=== PATIENT | male | born 1975 | race African-American/Black ===

== ENCOUNTER 2017-02-24 16:55 | Emergency (ER) | payer OTHER ==
[2017-02-24] MEDS ORDERED: IBUPROFEN 600 MG TABLET (FP) PO ONE ×2 (17:20→17:59)
--- NOTE | 2017-02-24 17:27 | PDOC ---
History of Present Illness - General History Source: Patient Exam Limitations: No Limitations <Marimar Montano - Last Filed: 02/24/17 17:23> - General History Source: Patient Exam Limitations: No Limitations - History of Present Illness Initial Comments: 02/24/17 18:00 The patient is a 41-year-old male, with no past medical history, who presents to the ED complaining of 2 months of right thumb pain. Pt reports that he slammed his hand with a door while at work and he is now experiencing a locking sensation when he flexes his thumb at the IP joint. He denies any recent trauma to the hand and denies any wrist pain. Pt reports that he tried to order a wrist splint but was unable to find one that immobilized his thumb. He denies taking any medication for pain. He reports to the ED today because the pain has progressively worsened and the clicking is occurring more frequently. He has not followed up with a hand specialist yet. The patient denies having any other symptoms. <Zoila Rivero - Last Filed: 02/24/17 18:10> - General Chief Complaint: Pain Stated Complaint: right thumb pain s/p injury at work x 2 months ago Time Seen by Provider: 02/24/17 17:14 Past History - Past Medical History COPD: No Other medical history: pt denies - Suicide/Smoking/Psychosocial Hx Smoking History: Never smoked Have you smoked in the past 12 months: No Number of Cigarettes Smoked Daily: 4 Hx Alcohol Use: No Drug/Substance Use Hx: Yes Substance Use Type: None <Marimar Montano - Last Filed: 02/24/17 17:23> <Zoila Rivero - Last Filed: 02/24/17 18:10> - Past Medical History Allergies/Adverse Reactions: Allergies Allergy/AdvReac Type Severity Reaction Status Date / Time Iodine and Iodide Containing Allergy Verified 02/24/17 17:13 Produc No Known Drug Allergies Allergy Verified 02/24/17 17:13 shellfish derived Allergy Verified 02/24/17 17:13 Home Medications: Ambulatory Orders Ibuprofen [Motrin -] 600 mg PO TID #90 tablet 02/24/17 Review of Systems - Review of Systems Able to Perform ROS?: Yes Comments:: 02/24/17 18:01 GENERAL/CONSTITUTIONAL: No fever or chills. No weakness. HEAD, EYES, EARS, NOSE AND THROAT: No change in vision. No ear pain or discharge. No sore throat. CARDIOVASCULAR: No chest pain or shortness of breath. RESPIRATORY: No cough, wheezing, or hemoptysis. GASTROINTESTINAL: No nausea, vomiting, diarrhea or constipation. GENITOURINARY: No dysuria, frequency, or change in urination. MUSCULOSKELETAL: (+)pain at ip joint of right hand with flexion. No neck or back pain. SKIN: No rash NEUROLOGIC: No headache, vertigo, loss of consciousness, or change in strength/ sensation. ENDOCRINE: No increased thirst. No abnormal weight change. HEMATOLOGIC/LYMPHATIC: No anemia, easy bleeding, or history of blood clots. ALLERGIC/IMMUNOLOGIC: No hives or skin allergy. <Zoila Rivero - Last Filed: 02/24/17 18:10> *Physical Exam - Physical Exam Comments: 02/24/17 18:07 GENERAL: Awake, alert, and fully oriented, in no acute distress HEAD: No signs of trauma EYES: PERRLA, EOMI, sclera anicteric, conjunctiva clear ENT: Auricles normal inspection, nares patent, oropharynx clear without exudates. Moist mucosa. NECK: Normal ROM, supple, no lymphadenopathy, JVD, or masses LUNGS: Breath sounds equal, clear to auscultation bilaterally. No wheezes, and no crackles HEART: Regular rate and rhythm, normal S1 and S2, no murmurs, rubs or gallops ABDOMEN: Soft, nontender, normoactive bowel sounds. No guarding, no rebound. No masses EXTREMITIES: (+)Right thumb: IP joint with sticking on flexion ,no swelling or erythema, full range of motion of wrist. No clubbing or cyanosis. No cords. NEUROLOGICAL: SKIN: Warm, Dry, normal turgor, no rashes or lesions noted <Zoila Rivero - Last Filed: 02/24/17 18:10> ED Treatment Course - RADIOLOGY Radiology Studies Ordered: Category Date Time Status HAND- RIGHT [RAD] Stat Radiology 02/24/17 17:20 Ordered <Marimar Montano - Last Filed: 02/24/17 17:23> Medical Decision Making - Medical Decision Making 02/24/17 17:23 41-year-old male with no past medical history here today complaining of 1 month of right thumb pain. Patient states he had a prior injury in which he slammed his hand in the door now feels a catching sensation when he tries to flex his thumb at the IP joint. No new trauma no fevers or chills no other current complaints no wrist pain. Had ordered a wrist splint but did not involve any immobilization of the thumb has not taken anything for pain here today because he feels that the pain the clicking is gotten more frequent and more severe. Has not followed up with a hand specialist as of yet On exam his right hand is noted for right thumb IP joint with sticking on flexion no swelling or erythema wrists is full range of motion. Patient has trigger finger of the right thumb at the IP joint we'll recommend hand follow-up with Dr. Allan Trimble. Also recommended patient by a thumb immobilization splint online can take Motrin 600 mg every 8 hours as needed for pain <Marimar Montano - Last Filed: 02/24/17 17:23> *DC/Admit/Observation/Transfer - Discharge Dispostion Admit: No <Marimar Montano - Last Filed: 02/24/17 17:23> - Attestations Scribe Attestion: 02/24/17 18:10 Documentation prepared by Zoila Rivero, acting as medical claims examiner for Marimar Montano MD. <Zoila Rivero - Last Filed: 02/24/17 18:10> Diagnosis at time of Disposition: Trigger finger - Discharge Dispostion Disposition: HOME Condition at time of disposition: Improved - Prescriptions Prescriptions: Ibuprofen [Motrin -] 600 mg PO TID #90 tablet - Referrals Referrals: Chan Trimble MD [Staff Physician] - - Patient Instructions Printed Discharge Instructions: Trigger Finger Additional Instructions: You need to follow up with a hand specialist. He can seek your own specialist, or he can follow up with Dr. Trimble or Dr. Lemus. See referral information for follow-up. He can order an online thumb immobilization splint or a thumb spica splint. There available medical supply stores or online [employer]. You can take Motrin 600 mg every 8 hours as needed for pain return for any problems or concerns
== END 2017-02-24 18:03 | disposition home or self-care (01) ==
LOC: FER 16:55
DX: M65.311 Trigger thumb, right thumb (principal); Z72.0 Tobacco use
CPT/HCPCS: 73130-TC-RT; 99281-25

== ENCOUNTER 2018-02-23 23:14 | Emergency (ER) | payer SELFPAY ==
[2018-02-23 23:27] VITALS: BMI 31.9
--- NOTE | 2018-02-23 23:30 | PDOC ---
History of Present Illness - General Chief Complaint: Pain, Acute Stated Complaint: STOMACH PAIN,VOMITTING, CHILLS Time Seen by Provider: 02/23/18 23:29 - History of Present Illness Initial Comments: 02/24/18 01:55 The patient is a 42 year old male with no significant PMH who presents for evaluation of epigastric abdominal pain. The patient reports acute onset of burning sharp epigastric abdominal pain earlier this evening with associated nausea and non-bloody, non-bilious vomiting prompting his presentation to the ED for further evaluation. He reports that he has had similar symptoms in the past. He notes that he is a daily marijuana smoker as well. He otherwise denies fevers, chills, SOB, chest pain, or changes with urination or bowel movements. He denies a history of heavy alcohol use as well. Past History - Past Medical History Allergies/Adverse Reactions: Allergies Allergy/AdvReac Type Severity Reaction Status Date / Time Iodine and Iodide Containing Allergy Verified 02/23/18 23:27 Produc No Known Drug Allergies Allergy Verified 02/23/18 23:27 shellfish derived Allergy Verified 02/23/18 23:27 Home Medications: Ambulatory Orders Ibuprofen [Motrin -] 600 mg PO TID #90 tablet 02/24/17 Famotidine [Pepcid -] 20 mg PO DAILY #12 tablet 02/24/18 Ondansetron [Zofran Odt -] 4 mg SL TID #21 od.tablet 02/24/18 COPD: No - Suicide/Smoking/Psychosocial Hx Smoking History: Never smoked Have you smoked in the past 12 months: No Number of Cigarettes Smoked Daily: 4 Information on smoking cessation initiated: No Hx Alcohol Use: No Drug/Substance Use Hx: No Substance Use Type: None Review of Systems - Review of Systems Comments:: 02/24/18 01:57 Constitutional: No fevers, chills, fatigue, malaise HEENT: No Rhinorrhea, nasal congestion, visual changes Cardiovascular: No chest pain, syncope, palpitations, lightheadedness Respiratory: No Cough, SOB, Hemoptysis, Gastrointestinal: Epigastric Abdominal pain, Nausea, Vomiting. No Constipation , Diarrhea, Melena Genitourinary: No Dysuria, Frequency, Urgency, Hesitancy, Hematuria, Flank pain Musculoskeletal: No Myalgia, arthralgia Skin: No rashes, itching, bruising, pallor Neurologic: No Headache, Dizziness, Numbness, Weakness, or Tingling Psychiatric: No Hallucinations. No SI or HI *Physical Exam - Vital Signs Last Vital Signs Temp Pulse Resp BP Pulse Ox 97.8 F 110 H 16 122/75 98 02/23/18 23:24 02/23/18 23:24 02/23/18 23:24 02/23/18 23:24 02/23/18 23:24 - Physical Exam Comments: 02/24/18 01:58 General Appearance: Nourished. No Apparent Distress HEENT: No Pharyngeal Erythema, Tonsillar Exudate, Tonsillar Erythema Neck: No Cervical Lymphadenopathy Respiratory/Chest: Lungs Clear, Normal Breath Sounds. No Crackles, Rales, Rhonchi, Wheezing Cardiovascular: Regular Rhythm, Regular Rate. No Murmur, Gallops, Rubs Gastrointestinal/Abdominal: Normal Bowel Sounds, Soft. Epigastric tenderness to palpation on exam. No RUQ tenderness to palpation. Negative Zmaan's sign. No Guarding, Rebound, Musculoskeletal: No CVA Tenderness Extremity: Normal Capillary Refill Integumentary: Normal Color, Dry, Warm Neurologic: Fully Oriented, Alert, Normal Mood/Affect, Normal Response, Moderate Sedation - Procedure Monitoring Vital Signs: Procedure Monitoring Vital Signs Temperature 97.8 F 02/23/18 23:24 Pulse Rate 110 H 02/23/18 23:24 Respiratory Rate 16 02/23/18 23:24 Blood Pressure 122/75 02/23/18 23:24 O2 Sat by Pulse Oximetry (%) 98 02/23/18 23:24 ED Treatment Course - LABORATORY CBC & Chemistry Diagram: 02/24/18 00:50 02/24/18 00:50 Medical Decision Making - Medical Decision Making 02/24/18 01:59 The patient is a 42 year old male with no significant PMH who presents for evaluation of epigastric abdominal pain. Differential includes but is not limited to: ACS, Gastritis, Pancreatitis, Infectious, Metabolic Derangement. Given the patient's history and physical exam, we will obtain a cbc, cmp, troponin, lipase, ekg to evaluate further. We will treat with iv fluids, pepcid , zofran, maalox, viscous lidocaine and continue to monitor and reassess while here in the ED. 02/24/18 07:03 CBC, cmp, troponin, lipase are unremarkable. CT abdomen/pelvis is unremarkable as preliminarily read by our operations representative radiologist. The patient began to have a fever. We will treat with iv fluids and tylenol and obtain a ua and chest plain film. Patient signed out to the day team pending UA, chest plain film and reassessment. *DC/Admit/Observation/Transfer Diagnosis at time of Disposition: Abdominal pain, Cyclical vomiting syndrome Nausea and vomiting Qualifiers: Vomiting type: unspecified Vomiting Intractability: unspecified Qualified Code( s): R11.2 - Nausea with vomiting, unspecified - Discharge Dispostion Disposition: HOME Condition at time of disposition: Stable - Prescriptions Prescriptions: Famotidine [Pepcid -] 20 mg PO DAILY #12 tablet Ondansetron [Zofran Odt -] 4 mg SL TID #21 od.tablet - Referrals Referrals: Kacie Erickson MD [Primary Care Provider] - Medhat Rush MD [Staff Physician] - - Patient Instructions Printed Discharge Instructions: DI for Vomiting -- Adult Additional Instructions: Please return to the ER if you experience concerning or worsening symptoms including worsening difficulty breathing, weakness, or chest pain, fevers, abdominal pain. Your lab results were normal here in the ER. Your CT scan was normal here in the ER. We have sent a prescription to your pharmacy for anti nausea medication. Please call to schedule a follow up appointment with our GI specialist within 2-3 days to discuss your ER visit and further management of your symptoms. Your symptoms may be related to daily infrequent use of marijuana. Stoping marijuana use is the most effective treatment for this condition. - Post Discharge Activity
[2018-02-23] MEDS ORDERED: ONDANSETRON 4 MG/2 ML VIAL IVPUSH ONE (23:42)
[2018-02-23] MEDS ORDERED: SODIUM CHLORIDE 1,000 ML IV STA (23:42)
[2018-02-23] MEDS ORDERED: MAG HYDROX/AL HYDROX/SIMETH 30 ML UNIT-DOSE CUP PO ONE (23:42)
[2018-02-23] MEDS ORDERED: FAMOTIDINE 20 MG/50 ML IVPB 20 MG/50 ML MG IVPB ONE (23:42)
[2018-02-23] MEDS ORDERED: LIDOCAINE VISCOUS 2% ORAL/TOP 20 ML UNIT-DOSE CUP MM ONE (23:42)
[2018-02-24] MEDS ORDERED: MAG HYDROX/AL HYDROX/SIMETH 30 ML UNIT-DOSE CUP ONE (00:20)
[2018-02-24] MEDS ORDERED: LIDOCAINE VISCOUS 2% ORAL/TOP 20 ML UNIT-DOSE CUP ONE (00:20)
[2018-02-24] MEDS ORDERED: ONDANSETRON 4 MG/2 ML VIAL ONE (00:20)
[2018-02-24] MEDS ORDERED: FAMOTIDINE 20 MG/50 ML IVPB 20 MG/50 ML MG IVPB ONE (00:21)
[2018-02-24 01:09] LABS: BASO % 0.6 % (0-2.0); HEMATOCRIT 42.8 % (35.4-49); HEMOGLOBIN 15.1 GM/dL (11.7-16.9); LYMPH % 9.4 % (8-40); MCH 32.8 pg (25.7-33.7); MCHC 35.2 g/dl (32.0-35.9); MEAN CELL VOLUME 93.2 fl (80-96); MEAN PLT VOLUME 8.5 fl (7.5-11.1); MONO % 4.3 % (3.8-10.2); NEUT % 85.7 % (42.8-82.8); PLATELET COUNT 230 K/MM3 (134-434); RBC 4.59 M/mm3 (4.00-5.60); RDW 13.9 % (11.9-15.9); WHITE BLOOD COUNT 12.6 K/mm3 (4.0-10.0)
--- NOTE | 2018-02-24 02:10 | PDOC ---
Attending Attestation - Resident Resident Name: KaleighBacilio - ED Attending Attestation I have performed the following: I have examined & evaluated the patient, The case was reviewed & discussed with the resident, I agree w/resident's findings & plan, Exceptions are as noted - Physicial Exam PE: 02/24/18 02:08 awake alert lungs clear bilaterally heart rrr no mrg . abd soft mild llq ttp. no rebound no guarding. skin warm and dry.nuero alert oriented x 3. - Medical Decision Making 02/24/18 02:08 42 yo male with h/o daily weed use, here with intractable n/v/d. 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 vomiting started today. no f/c no sick contacts. no travel. on exam mild llq ttp. differential diverticulitis, colitis, hyperemesis of cannabis. electrolyte abnoramlity,viral gastritis. plan ct a/p , iv hydration antiemetics. reassess. <Marimar Montano - Last Filed: 02/24/18 02:07> - HPI HPI: 02/24/18 02:21 The patient is 42 year old male with a past medical history of daily weed use and borderline DM presenting to the ER with nausea and vomiting today. Patients reports this has happened to him in the past. Patient has been told to follow up with GI but has not done so yet. Patient denies any sick contact or recent travel. Patient denies chest pain, sob, urinary complaints, or changes in bowel movements. <Shannon Graff - Last Filed: 02/24/18 02:26>
[2018-02-24 02:22] LABS: ALBUMIN 4.6 g/dl (3.4-5.0); ALK PHOS 75 U/L (45-117); ANION GAP 7 MMOL/L (8-16); BILIRUBIN,TOTAL 0.6 mg/dL (0.2-1); BLOOD UREA NITROGEN 19 mg/dL (7-18); CALCIUM 9.8 mg/dL (8.5-10.1); CHLORIDE 106 mmol/L (98-107); CO2 25 mmol/L (21-32); CREATININE 1.3 mg/dL (0.55-1.3); GLUCOSE,RANDOM 117 mg/dL (74-106); LIPASE 74 U/L (73-393); POTASSIUM 4.9 mmol/L (3.5-5.1); SGOT/AST 45 U/L (15-37); SGPT/ALT 29 U/L (13-61); SODIUM 138 mmol/L (136-145); TOT PROT 8.8 g/dl (6.4-8.2)
[2018-02-24] MEDS ORDERED: METOCLOPRAMIDE HCL INJECTION 10 MG/2 ML VIAL IVPUSH ONE (03:39)
[2018-02-24] MEDS ORDERED: METOCLOPRAMIDE HCL INJECTION 10 MG/2 ML VIAL ONE (03:52)
[2018-02-24] MEDS ORDERED: LORazepam 2 MG/ML SDV VIAL ONE (03:53)
[2018-02-24] MEDS ORDERED: SODIUM CHLORIDE 1,000 ML IV STA (06:23)
[2018-02-24] MEDS ORDERED: ACETAMINOPHEN 1000 MG/100 ML VIAL (NON FORMULARY) IVPB ONE (06:23)
[2018-02-24] MEDS ORDERED: ACETAMINOPHEN INJECTION 100 ML IVPB ONE (06:31)
[2018-02-24 07:25] LABS: URINE APPEARANCE CLEAR; URINE BILIRUBIN NEGATIVE (<2.0 mg/dL); URINE COLOR YELLOW; URINE GLUCOSE (UA) NEGATIVE (NEGATIVE); URINE KETONE 1+ (NEGATIVE); URINE LEUK ESTERASE NEGATIVE (NEGATIVE); URINE NITRITE NEGATIVE (NEGATIVE); URINE PROTEIN NEGATIVE (NEGATIVE); URINE UROBILINOGEN NEGATIVE mg/dL (0.2-1.0)
[2018-02-24 10:26] VITALS: BP 105/70; PULSE 80; TEMP 99.7
--- NOTE | 2018-02-24 10:51 | PDOC ---
*Physical Exam - Vital Signs Last Vital Signs Temp Pulse Resp BP Pulse Ox 99.7 F H 80 16 105/70 99 02/24/18 10:25 02/24/18 10:25 02/24/18 10:25 02/24/18 10:25 02/24/18 10:25 - Physical Exam Comments: 02/24/18 10:46 Patient endorsed to me by Dr. Montano. Patient is a 42-year-old male who presented with diffuse abdominal pain, nausea and vomiting associated with daily use of marijuana. Patient was initially evaluated for abdominal pain with a CT of abdomen and pelvis which showed no evidence of acute intra-abdominal pathology. Shortly prior to discharge, patient developed low-grade fever and transient hypotension. Patient was given antipyretics and IV fluids. Chest x- ray reveals no evidence of infiltrate or effusion. Urinalysis within normal limit. There is no petechial rash. On reassessment, there are no meningeal signs , repeat abdominal exam reveals no focal tenderness. Patient is able to ambulate without difficulty. Patient tolerates by mouth without dysphasia or vomiting. I do not suspect acute appendicitis or diverticulitis at this time. Will discharge with abdominal pain, fever cannabinoid hyperemesis syndrome with outpatient follow-up. ED Treatment Course - LABORATORY CBC & Chemistry Diagram: 02/24/18 00:50 02/24/18 00:50 - ADDITIONAL ORDERS Additional order review: Laboratory Results 02/24/18 02/24/18 07:13 00:50 Sodium 138 Potassium 4.9 Chloride 106 Carbon Dioxide 25 Anion Gap 7 L BUN 19 H Creatinine 1.3 Creat Clearance w eGFR 59.97 Random Glucose 117 H Calcium 9.8 Total Bilirubin 0.6 AST 45 H ALT 29 Alkaline Phosphatase 75 Creatine Kinase 491 H Creatine Kinase Index 0.2 CK-MB (CK-2) < 1.0 Troponin I < 0.02 Total Protein 8.8 H Albumin 4.6 Lipase 74 Urine Color Yellow Urine Appearance Clear Urine pH 6.0 Ur Specific [place] 1.029 Urine Protein Negative Urine Glucose (UA) Negative Urine Ketones 1+ H Urine Blood Negative Urine Nitrite Negative Urine Bilirubin Negative Urine Urobilinogen Negative Ur Leukocyte Esterase Negative 02/24/18 00:50 RBC 4.59 MCV 93.2 MCHC 35.2 RDW 13.9 MPV 8.5 Neutrophils % 85.7 H D Lymphocytes % 9.4 D Monocytes % 4.3 Eosinophils % 0.0 D Basophils % 0.6 - Medications Given in the ED: ED Medications Discontinued Medications Generic Name Dose Route Start Last Admin Trade Name Poppy PRN Reason Stop Dose Admin Acetaminophen 1,000 mg 02/24/18 06:23 02/24/18 06:45 Ofirmev Injection - IVPB 02/24/18 06:24 1,000 mg ONCE ONE Administration Al Hydroxide/Mg Hydroxide 30 ml 02/23/18 23:42 02/24/18 00:24 Mylanta Oral Suspension - PO 02/23/18 23:43 30 ml ONCE ONE Administration Famotidine/Sodium Chloride 20 mg in 50 mls @ 100 mls/hr 02/23/18 23:42 00:24 Pepcid 20 Mg Premixed Ivpb - IVPB 02/24/18 00:11 100 mls/hr ONCE ONE Administration Sodium Chloride 1,000 mls @ 1,000 mls/hr 02/23/18 23:42 02/24/18 00:24 Normal Saline - IV 02/24/18 00:41 1,000 mls/hr ASDIR STA Administration Sodium Chloride 1,000 mls @ 1,000 mls/hr 02/24/18 06:23 02/24/18 06:45 Normal Saline - IV 02/24/18 07:22 1,000 mls/hr ASDIR STA Administration Lidocaine HCl 20 ml 02/23/18 23:42 02/24/18 00:24 Xylocaine 2% Viscous Oral - MM 02/23/18 23:43 20 ml ONCE ONE Administration Lorazepam 1 mg 02/24/18 03:40 02/24/18 04:01 Ativan Injection - IVPUSH 02/24/18 03:41 1 mg ONCE ONE Administration Metoclopramide HCl 10 mg 02/24/18 03:39 02/24/18 04:01 Reglan Injection - IVPUSH 02/24/18 03:40 10 mg ONCE ONE Administration Ondansetron HCl 4 mg 02/23/18 23:42 02/24/18 00:24 Zofran Injection IVPUSH 02/23/18 23:43 4 mg ONCE ONE Administration *DC/Admit/Observation/Transfer Diagnosis at time of Disposition: Nausea and vomiting Qualifiers: Vomiting type: unspecified Vomiting Intractability: unspecified Qualified Code( s): R11.2 - Nausea with vomiting, unspecified Abdominal pain Qualifiers: Abdominal location: unspecified location Qualified Code(s): R10.9 - Unspecified abdominal pain Cyclical vomiting syndrome Qualifiers: Vomiting Intractability: non-intractable Nausea presence: with nausea Qualified Code(s): G43.A0 - Cyclical vomiting, not intractable - Discharge Dispostion Disposition: HOME Condition at time of disposition: Stable - Prescriptions Prescriptions: Famotidine [Pepcid -] 20 mg PO DAILY #12 tablet Ondansetron [Zofran Odt -] 4 mg SL TID #21 od.tablet - Referrals Referrals: Medhat Rush MD [Staff Physician] - Kacie Erickson MD [Primary Care Provider] - - Patient Instructions Printed Discharge Instructions: DI for Vomiting -- Adult Additional Instructions: Please return to the ER if you experience concerning or worsening symptoms including worsening difficulty breathing, weakness, or chest pain, fevers, abdominal pain. Your lab results were normal here in the ER. Your CT scan was normal here in the ER. We have sent a prescription to your pharmacy for anti nausea medication. Please call to schedule a follow up appointment with our GI specialist within 2-3 days to discuss your ER visit and further management of your symptoms. Your symptoms may be related to daily infrequent use of marijuana. Stoping marijuana use is the most effective treatment for this condition. - Post Discharge Activity
--- NOTE | 2018-02-24 11:45 | EKG ---
Test Reason : Blood Pressure : / mmHG Vent. Rate : 069 BPM Atrial Rate : 069 BPM P-R Int : 160 ms QRS Dur : 076 ms QT Int : 390 ms P-R-T Axes : 055 067 040 degrees QTc Int : 417 ms NORMAL SINUS RHYTHM NORMAL ECG NO PREVIOUS ECGS AVAILABLE Confirmed by ARELIS NICKERSON, LEIGHTON ([id number]) on 02/24/2018 11:44:53 AM Referred By: Confirmed By:LEIGHTON INFANTE MD
== END 2018-02-24 11:17 | disposition home or self-care (01) ==
LOC: JER 23:14
PROC: 3E033NZ Introduction of Analgesics, Hypnotics, Sedatives into Peripheral Vein, Percutaneous Approach (ICD-10-PCS; principal; 2018-02-23)
PROC: 3E033GC Introduction of Other Therapeutic Substance into Peripheral Vein, Percutaneous Approach (ICD-10-PCS; 2018-02-23)
PROC: 3E0337Z Introduction of Electrolytic and Water Balance Substance into Peripheral Vein, Percutaneous Approach (ICD-10-PCS; 2018-02-23)
DX: R05 Cough (principal)
CPT/HCPCS: 36415; 71045-TC-FY; 74176-TC; 80053; 81003; 82550; 82553; 83690; 84484; 85025; 93005; 93010; 99282-25; J0131; J7030

== ENCOUNTER 2018-10-26 11:02 | Emergency (ER) | payer OTHER ==
[2018-10-26 11:07] VITALS: TEMP 98.6; BMI 25.0
[2018-10-26] MEDS ORDERED: METOCLOPRAMIDE HCL INJECTION 10 MG/2 ML VIAL IVPUSH ONE (11:11)
[2018-10-26] MEDS ORDERED: SODIUM CHLORIDE 1,000 ML IV STA (11:11)
[2018-10-26] MEDS ORDERED: FAMOTIDINE 20 MG/50 ML IVPB 20 MG/50 ML MG IVPB ONE ×2 (11:12→11:15)
--- NOTE | 2018-10-26 11:13 | PDOC ---
History of Present Illness - General Chief Complaint: Pain, Acute Stated Complaint: abd pain Time Seen by Provider: 10/26/18 11:06 - History of Present Illness Initial Comments: 10/26/18 11:21 43M with multiple ED visits for vomiting and abdominal pain presents to the ED with vomiting and LLQ abdominal pain since waking up around 9am this morning. Spend the morning vomiting but no blood in the vomitus, no diarrhea. Says that IV medicine usually worked for him on previous visits. Admits to daily marijuana use. Did not use more than usual last night. Denies fever, chills, rashes, sob, chest pain, diarrhea or risky food ingestion. Past History - Past Medical History Allergies/Adverse Reactions: Allergies Allergy/AdvReac Type Severity Reaction Status Date / Time Iodine and Iodide Containing Allergy Verified 10/26/18 11:03 Produc shellfish derived Allergy Verified 10/26/18 11:03 Home Medications: Ambulatory Orders Hyoscyamine Odt [Levsin Odt -] 0.125 mg PO DAILY PRN #7 tab.rapdis 10/26/18 COPD: No - Immunization History Immunization Up to Date: Yes - Suicide/Smoking/Psychosocial Hx Smoking History: Never smoked Have you smoked in the past 12 months: No Number of Cigarettes Smoked Daily: 4 Hx Alcohol Use: Yes (ocasional) Drug/Substance Use Hx: Yes (daily mairjuana) Substance Use Type: None Abd/GI Specific PMHX - Complaint Specific PMHX Colitis: No Diverticulitis: No Gall Bladder Disease: No GERD: No Hepatitis: No Irritable Bowel Synd (IBS): No Pancreatitis: No GI Ulcer Disease: No Review of Systems - Review of Systems Able to Perform ROS?: Yes Is the patient limited Ivorian proficient: No Constitutional: No: Symptoms Reported HEENTM: No: Symptoms Reported Respiratory: No: Symptoms reported Cardiac (ROS): No: Symptoms Reported ABD/GI: Yes: See HPI : No: Symptoms Reported Musculoskeletal: No: Symptoms Reported Integumentary: No: Symptoms Reported Neurological: No: Symptoms reported All Other Systems: Reviewed and Negative *Physical Exam - Vital Signs Last Vital Signs Temp Pulse Resp BP Pulse Ox 98.6 F 75 18 143/85 100 10/26/18 11:02 10/26/18 11:02 10/26/18 11:02 10/26/18 11:02 10/26/18 11:02 - Physical Exam General Appearance: Yes: Nourished, Appropriately Dressed, Moderate Distress HEENT: positive: EOMI, LUIS CARLOS, Normal ENT Inspection Respiratory/Chest: positive: Lungs Clear, Normal Breath Sounds. negative: Chest Tender, Respiratory Distress Cardiovascular: positive: Regular Rhythm, Regular Rate, S1, S2 Gastrointestinal/Abdominal: positive: Normal Bowel Sounds, Flat, Soft. negative : Tender Musculoskeletal: positive: Normal Inspection. negative: CVA Tenderness Extremity: positive: Normal Capillary Refill, Normal Inspection, Normal Range of Motion Integumentary: positive: Normal Color, Dry, Warm Neurologic: positive: Fully Oriented, Alert, Normal Mood/Affect (difficult to stit still due to pain) ED Treatment Course - LABORATORY CBC & Chemistry Diagram: 10/26/18 11:35 10/26/18 11:35 Medical Decision Making - Medical Decision Making 10/26/18 11:30 43M with h/o vomiting episodes presents with usual episode of pain and intractable vomiting. Past workups and imaging never showed any acute processes, never any evidence of gastritis/colitis or hernia. We will still obtain basic labs and lipase to rule out pancreatitis, cholecystitis. Low suspicion for appendicitis due to absence of tenderness but will see if wbc is elevated. Treating with reglan, pepcid and IV NS. 10/26/18 12:14 Patient still vomiting after 1h, giving addition Zofran and IV tylenol 10/26/18 12:47 Will obtain EKG to make sure there's no QT prolongation and administer Haldol 2.5mg 10/26/18 13:27 Haldol 5mg IM administered due to IV no useable at this time. Patient feels some relief in nausea but still complaiing of pain in the abdomen. Giving trial of hyoscyamine for spasm relief. 10/26/18 13:49 Lipase WNL. 10/26/18 14:50 Patient's pain mostly resolved, no more nausea. Ok to DC with follow up. *DC/Admit/Observation/Transfer Diagnosis at time of Disposition: Nausea and vomiting Qualifiers: Vomiting type: unspecified Vomiting Intractability: non-intractable Qualified Code(s): R11.2 - Nausea with vomiting, unspecified - Discharge Dispostion Disposition: HOME Condition at time of disposition: Stable Decision to Admit order: No - Referrals - Patient Instructions - Post Discharge Activity
[2018-10-26] MEDS ORDERED: METOCLOPRAMIDE HCL INJECTION 10 MG/2 ML VIAL ONE (11:15)
--- NOTE | 2018-10-26 12:00 | PDOC ---
Attending Attestation - Resident Resident Name: Rick Martines - ED Attending Attestation I have performed the following: I have examined & evaluated the patient, The case was reviewed & discussed with the resident, I agree w/resident's findings & plan - HPI HPI: 10/26/18 11:56 43-year-old male with no significant past medical history other than chronic intermittent vomiting syndrome, seemingly attributed to daily marijuana use in the past but without official GI evaluation, presents now with 1-2 days of worsening epigastric pain/reflux/vomiting. Similar to past episodes, occurs in the setting of daily marijuana use, denies any excessive alcohol or NSAID or opiate use. No melena, no fevers or chills, presents for evaluation. Distant surgical history of umbilical hernia repair as an infant, no history of obstruction. CAT scans in the past have been normal. - Physicial Exam PE: 10/26/18 11:58 Vital signs normal, afebrile No jaundice or pallor Actively retching with clear/green fluid Heart is regular, lungs are clear Abdomen is soft/nondistended. Epigastric discomfort to palpation without guarding or rebound. No rash, neurovascularly intact distally - Medical Decision Making 10/26/18 11:58 43-year-old male with history of daily marijuana use presents with intractable vomiting and epigastric discomfort, no peritoneal findings on exam and hemodynamically stable. 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 Presentation not consistent with obstruction despite his distant surgical history. Check labs for electrolytes and lipase IV fluid rehydration, antacid, antiemetic Reassess 10/26/18 12:53 cbc/chem wnl, lipase pending received ivf, pepcid, reglan, zofran, tylenol with only some relief. accidentally pulled out his IVs, still retching. clinical trials suggestive of benefit with haldol for cannabinoid induced gastroparesis. EKG performed and qtc wnl, will trial haldol and reassess. 10/26/18 14:01 lipase normal. received anti-spasmodic, will reassess. if sxs persist, will likely need admission. 10/26/18 14:44 markedly improved after Levsin odt, resolved retching/pain and now tolerating crackers/water. abdominal exam benign, resting comfortably. agrees with d/c plan. will f/u with GI. counseled regarding excessive marijuana use, understands return criteria. *DC/Admit/Observation/Transfer Diagnosis at time of Disposition: Nausea and vomiting Qualifiers: Vomiting type: unspecified Vomiting Intractability: non-intractable Qualified Code(s): R11.2 - Nausea with vomiting, unspecified - Discharge Dispostion Disposition: HOME Condition at time of disposition: Improved - Prescriptions Prescriptions: Hyoscyamine Odt [Levsin Odt -] 0.125 mg PO DAILY PRN #7 tab.rapdis PRN Reason: Nausea And/Or Vomiting - Referrals Referrals: Vikas Uriostegui DO [Staff Physician] - - Patient Instructions Printed Discharge Instructions: DI for Gastroparesis Additional Instructions: Activity as tolerated. Advance diet as tolerated, avoiding dairy, spicy or fatty food, caffeine and alcohol. Stay hydrated. Blood tests and an EKG today showed no acute abnormalities. The vomiting is likely due to stomach dysmotility, possibly prompted by marijuana use. Take Levsin as prescribed as a stomach anti-spasmodic as needed for nausea/ vomiting. Minimize marijuana use. Continue your medications as previously prescribed by your physician. You should follow up with your primary doctor and a GI specialist (consider calling Dr. Uriostegui) as soon as possible regarding today's emergency department visit. Return to the emergency department for any new or concerning symptoms, particularly persistent or worsening pain, persistent vomiting or dehydration, fever/chills, bloody stool or vomit. - Post Discharge Activity Heart Score/ECG Review #1 ECG reviewed & interpreted by me at: 12:52 General ECG Interpretation: Sinus Rhythm, Normal Rate (70), Normal Intervals ( qtc 410), No acute ischemic changes
[2018-10-26 12:02] LABS: HEMATOCRIT 42.5 % (35.4-49); HEMOGLOBIN 14.1 GM/dl (11.7-16.9); LYMPH % 14.7 % (8-40); MCHC 33.2 g/dl (32.0-35.9); MEAN CELL VOLUME 96.3 fl (80-96); MEAN PLT VOLUME 8.4 fl (7.5-11.1); MONO % 7.2 % (3.8-10.2); NEUT % 74.1 % (42.8-82.8); PLATELET COUNT 198 K/MM3 (134-434); RBC 4.41 M/mm3 (4.00-5.60); RDW 13.7 % (11.9-15.9); WHITE BLOOD COUNT 11.7 K/mm3 (4.0-10.8)
[2018-10-26 12:11] LABS: ALBUMIN 4.6 g/dl (3.4-5.0); BILIRUBIN,TOTAL 0.9 mg/dl (0.2-1); CALCIUM 9.5 mg/dl (8.5-10); CREATININE 1.3 mg/dl (0.55-1.3); POTASSIUM 3.8 mmol/L (3.5-5.1); TOT PROT 7.9 g/dl (6.4-8.2)
[2018-10-26] MEDS ORDERED: ONDANSETRON 4 MG/2 ML VIAL IVPUSH ONE (12:12)
[2018-10-26] MEDS ORDERED: ACETAMINOPHEN 1000 MG/100 ML VIAL (NON FORMULARY) IVPB ONE (12:12)
[2018-10-26] MEDS ORDERED: ACETAMINOPHEN INJECTION 100 ML IVPB ONE (12:13)
[2018-10-26] MEDS ORDERED: ONDANSETRON 4 MG/2 ML VIAL ONE (12:14)
[2018-10-26] MEDS ORDERED: HALOPERIDOL LACTATE 5 MG/ML IM ONE (12:51)
[2018-10-26] MEDS ORDERED: HALOPERIDOL LACTATE 5 MG/ML ONE (12:55)
[2018-10-26] MEDS ORDERED: HYOSCYAMINE SULFATE 0.125 MG *ODT PO ONE (13:26)
[2018-10-26] MEDS ORDERED: HYOSCYAMINE SULFATE 0.125 MG *ODT ONE (13:28)
--- NOTE | 2018-10-26 13:53 | EKG ---
Test Reason : Blood Pressure : / mmHG Vent. Rate : 070 BPM Atrial Rate : 070 BPM P-R Int : 140 ms QRS Dur : 068 ms QT Int : 380 ms P-R-T Axes : 024 058 033 degrees QTc Int : 410 ms POOR DATA QUALITY, INTERPRETATION MAY BE ADVERSELY AFFECTED SINUS RHYTHM WITH PREMATURE ATRIAL COMPLEXES OTHERWISE NORMAL ECG WHEN COMPARED WITH ECG OF 24-FEB-2018 01:47, PREMATURE ATRIAL COMPLEXES ARE NOW PRESENT Confirmed by MD BAILEY, FANNIE ([id number]) on 10/26/2018 1:52:31 PM Referred By: MANUEL PRATER Confirmed By:FANNIE AVALOS MD
[2018-10-26 13:58] VITALS: BP 128/76; PULSE 66
== END 2018-10-26 14:55 | disposition home or self-care (01) ==
LOC: FER 11:02
PROC: 3E033NZ Introduction of Analgesics, Hypnotics, Sedatives into Peripheral Vein, Percutaneous Approach (ICD-10-PCS; principal; 2018-10-26)
PROC: 3E033GC Introduction of Other Therapeutic Substance into Peripheral Vein, Percutaneous Approach (ICD-10-PCS; 2018-10-26)
PROC: 3E0337Z Introduction of Electrolytic and Water Balance Substance into Peripheral Vein, Percutaneous Approach (ICD-10-PCS; 2018-10-26)
DX: R11.2 Nausea with vomiting, unspecified (principal)
CPT/HCPCS: 36415; 80053; 83690; 85025; 93005; 99283-25; J0131; J7030